=== PATIENT | female | born 1965 | race Caucasian/White ===

== ENCOUNTER 2018-04-01 21:48 | Emergency (ER) | payer MEDICAID ==
[~2018-04-01] VITALS: Ht 162.6 cm; Wt 82.0 kg
[2018-04-01] MEDS ORDERED: KETOROLAC 60MG/2ML VIAL IM ONE (23:00)
[2018-04-01] MEDS ORDERED: VISCOUS LIDOCAINE 2% 15 ML UDC MM ONE (23:00)
[2018-04-01] MEDS ORDERED: MAGNESIUM/ALUMINUM HYDROXIDE/SIMETHICONE 30ML UDC PO STA (23:21)
[2018-04-02 00:50] LABS: BASOPHILS % 0.2 % (0.0-2.0); HEMATOCRIT. 39.3 % (36.0-48.0); HEMOGLOBIN. 13.7 g/dL (12.0-16.0); MEAN CORPUSCULAR HEMOGLOBIN 31.8 pg (28.0-32.0); MEAN CORPUSCULAR VOLUME 91.5 fL (81.0-99.0); MEAN PLATELET VOLUME 7.9 fl (7.4-10.4); MONOCYTES % 4.3 % (2.0-8.0); NEUTROPHILS % 87.5 % (40.0-76.0); PLATELET 238 x1000/uL (130-400); RED CELL DISTRIBUTION WIDTH 12.8 % (11.6-14.6)
[2018-04-02 00:55] LABS: CHLORIDE 104 mEq/L (98-107)
[2018-04-02 01:24] LABS: HCG SCREEN NEGATIVE
[2018-04-02 01:56] VITALS: BP 97/55
[2018-04-02] MEDS ORDERED: ACETAMINOPHEN 500MG TABLET PO ONE ×2 (02:00)
[2018-04-02 03:24] LABS: CLARITY URINE CLEAR (CLEAR); COLOR URINE YELLOW (YELLOW); KETONES URINE 1+ (NEGATIVE); LEUKOCYTE ESTERASE URINE NEGATIVE (NEGATIVE); NITRITE URINE NEGATIVE (NEGATIVE); OCCULT BLOOD URINE TRACE (NEGATIVE); PH URINE 7.5 (4.5-8.0); PROTEIN URINE NEGATIVE (NEGATIVE); SPECIFIC GRAVITY URINE 1.013 (1.005-1.030); UROBILINOGEN URINE 0.2 E.U./dL (0.2-1.0)
== END 2018-04-02 02:17 | disposition home or self-care (01) ==
LOC: ER 21:48
DX: J02.8 Acute pharyngitis due to other specified organisms (principal); J06.9 Acute upper respiratory infection, unspecified; M79.7 Fibromyalgia
CPT/HCPCS: 36415; 80053; 81003; 83690; 84484; 84703; 85025; 87070; 87430; 87804; 93005; 99284; J1885